=== PATIENT | female | born 1955 | race Hispanic/Latino ===

== ENCOUNTER 2017-04-22 16:09 | Inpatient (IN) | payer BC, SELFPAY ==
[~2017-04-22 16:09] MED LIST: ISOVUE-370 76%-LOCM 1 ML ONE
[2017-04-22 16:42] LABS: #Basophils 0.1 thou/uL (0.0-0.2); #Eosinphils 0.3 thou/uL (0.0-0.7); #Lymphocytes 5.5 thou/uL (1.20-3.40); #Monocytes 0.7 thou/uL (0.11-0.59); #Neutrophils 4.8 thou/uL (1.40-6.50); %Basophils 0.8 % (0.0-1.0); %Eosinophils 2.9 % (0.0-10.0); %Lymphocytes 48.5 % (21.0-51.0); %Monocytes 5.9 % (0.0-10.0); Hematocrit 45.3 % (36.0-47.0); Mean Platelet Volume 7.7 fL (7.4-10.4); Red Blood Cell (RBC) Count 5.14 mill/uL (4.20-5.40); White Blood Cell (WBC) Count 11.4 thou/uL (4.8-10.8)
[2017-04-22 16:48] LABS: PTT 29.5 SEC (22.9-36.1)
--- NOTE | 2017-04-22 16:50 | CT ---
CT BRAIN NONCONTRAST: DATE: 04/22/2017 TIME: 4:31 p.m. HISTORY: A 61-year-old female with acute stroke symptoms: acute right upper extremity weakness. Dr. Vazquez called this stroke alert protocol report STAT to Dr. Rodriguez of the Emergency Department at 4: 34 p.m. on 04/22/2017. FINDINGS: There is no midline shift or any other mass effect. There is no evidence of acute intracranial hemo rrhage, large cortical infarct, obstructive hydrocephalus, or extraaxial fluid collection. The calv arium is intact. IMPRESSION: No acute intracranial findings. shiva [] POS: [facility]
[2017-04-22 16:54] LABS: ALT (SGPT) 15 U/L (8-55); AST (SGOT) 18 U/L (5-34); Alkaline Phosphatase 105 U/L (40-150); Anion Gap 14 mmol/L (10-20); BUN (Urea Nitrogen) 10 mg/dL (9.8-20.1); Bilirubin, Total 0.3 mg/dL (0.2-1.2); CK (CPK) 127 U/L (29-168); Calc. Creatinine Clearance 0 mL/min (70-130); Carbon Dioxide 24 mmol/L (23-31); Chloride 104 mmol/L (98-107); Estimated GFR-MDRD 84; Globulin 3.6 g/dL (2.4-3.5); Lipase 22 U/L (8-78); Protein, Total 7.7 g/dL (6.0-8.3)
[2017-04-22 16:58] LABS: Troponin I Less than 0.010 ng/mL (< 0.028)
--- NOTE | 2017-04-22 17:21 | RAD ---
PORTABLE CHEST ONE VIEW 04/22/2017 at 4:10 p.m.: HISTORY: Altered mental status. FINDINGS/IMPRESSION: Comparison is made with the exam of 11/21/2004. The heart size is borderline. The lungs are expanded without focal areas of consolidation, pneumoth orax, maximiliano pleural edema, or pleural effusions. There are post-op changes of right rotator cuff repair. POS: [facility]
[2017-04-22 17:31] LABS: Prothrombin Time 12.9 SEC (12.0-14.7)
[2017-04-22 17:41] LABS: Bilirubin Negative (Negative); Blood, Urine Negative (Negative); Glucose, Urine (Dipstick) Negative (Negative); Ketone, Urine Negative (Negative); Nitrite Negative (Negative); Protein, Urine (Dipstick) Negative (Neg-Trace); Urobilinogen 0.2 mg/dL (0.2-1.0)
[2017-04-22 17:51] LABS: Amphetamine Not Detected (NotDetected); Methadone Not Detected (NotDetected); Methamphetamine Not Detected (NotDetected)
--- NOTE | 2017-04-22 17:55 | CT ---
CT ANGIOGRAM OF THE NECK WITH CONTRAST CT ANGIOGRAM OF THE HEAD WITH CONTRAST CT PERFUSION OF BRAIN WITH CONTRAST: 04/22/17 HISTORY: 61-year-old female with acute stroke: right lower extremity and right upper extremity acute weakness . This stroke alert protocol study report was called to Dr. Eric Rodriguez of the Emergency Department at 1700 hours on 04/22/17. TECHNIQUE: 150 mL of Isovue 370 injected IV. Arterial bolus chasing technique scan performed from the mediastinum approximately 1.5 cm inferior t o the marissa, to the vertex of the head. Sagittal and coronal 3D MIP reconstructions of the neck. Sagittal and coronal 3D MIP reconstructions of the head. Multiphase CTs of the brain performed, excluding the posterior fossa, and excluding the levels super ior to the lateral ventricles, for perfusion study. FINDINGS: There is no asymmetric abnormality of the cerebral blood volume, cerebral blood flow, mean transit t shira, or IRFI. No evidence of occlusion or high grade focal stenosis identified involving the anterior or posterior circulation [place] of Daniel, including proximal and mid level branches. Peripheral branches are mo re difficult to evaluate. There is an anterior communicating artery and a right posterior communicating artery. The left carot id siphon is diffusely mildly to moderately narrower than the contralateral right carotid siphon. Th is may be related to the fact that the left internal carotid artery is also diffusely mildly to mode rately narrower than the contralateral carotid siphon. There is no focal high grade stenosis of the internal carotid arteries, common carotid arteries, brachiocephalic artery, right subclavian artery, or the right vertebral artery. The bilateral vertebral arteries are codominant. The proximal portio n of the left vertebral artery is obscured by beam hardening artifact from adjacent dense contrast m aterial in the adjacent left vertebral veins. Likewise, the distal portion of the left subclavian ve in is obscured by beam hardening artifact from the adjacent contrast bolus in the left subclavian ve in. Aortic arch is within normal limits in caliber. No dissection. IMPRESSION: 1. No abnormality identified on the perfusion scan. 2. Please note that a perfusion abnormality in the upper portion of the cerebrum, including kat t involving the motor cortex and sensory cortex, would not be included on standard perfusion studies such as this. 3. No definite major abnormality of the major intracranial arteries or major arteries of the ne ck. Code CR POS: [facility]
[2017-04-22 19:45] VITALS: BMI 40.0
[2017-04-22] MEDS ORDERED: Acetaminophen 325 MG TAB PO PRN (19:48)
[2017-04-22] MEDS ORDERED: Ondansetron ODT 4 MG TAB SL PRN (19:48)
[2017-04-22] MEDS ORDERED: Ondansetron HCl/PF 4 MG/2 ML Vial IVP PRN ×2 (19:48→20:08)
[2017-04-22] MEDS ORDERED: Sodium Chloride 0.9% 1,000 ML IV SCH (19:48)
[2017-04-22] MEDS ORDERED: hydrALAZINE 20 MG/ML VIAL SLOW IVP PRN (20:08)
[2017-04-22] MEDS ORDERED: Ondansetron ODT 4 MG TAB PO PRN (20:08)
[2017-04-22] MEDS: Famotidine 20 MG TAB PO SCH (20:43)
[2017-04-22] MEDS: Acetaminophen 500 MG TAB PO PRN (20:43)
[2017-04-22] MEDS ORDERED: Atorvastatin Calcium 40 MG TAB PO SCH (21:00)
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
[2017-04-23] MEDS: Acetaminophen 500 MG TAB PO PRN ×2 (05:00→11:15)
[2017-04-23 05:27] LABS: Band 2 % (5-11); Hematocrit 42.9 % (36.0-47.0); Mean Platelet Volume 8.3 fL (7.4-10.4); Neutrophil 50 % (42-75); Red Blood Cell (RBC) Count 4.92 mill/uL (4.20-5.40); White Blood Cell (WBC) Count 8.3 thou/uL (4.8-10.8)
[2017-04-23 05:33] LABS: Anion Gap 12 mmol/L (10-20); BUN (Urea Nitrogen) 10 mg/dL (9.8-20.1); Calc. Creatinine Clearance 143 mL/min (70-130); Calcium 8.7 mg/dL (7.8-10.44); Carbon Dioxide 22 mmol/L (23-31); Chloride 108 mmol/L (98-107); Cholesterol 186 mg/dl (< 200 Desired); Estimated GFR-MDRD 88; LDL Cholesterol, Calculated 124 mg/dL
[2017-04-23] MEDS: Famotidine 20 MG TAB PO SCH (08:40)
[2017-04-23] MEDS ORDERED: Aspirin 325 mg Enteric Coated Tablet PO SCH (09:00)
[2017-04-23] MEDS ORDERED: FLU VACC QS2017-18 36 mo. & older 0.5 ML SYRINGE IM ONE (09:00)
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
[2017-04-23 11:51] VITALS: BP 119/70; TEMP 97.5
--- NOTE | 2017-04-23 12:44 | MRI ---
MRI BRAIN WITHOUT CONTRAST: Technique: Multiplanar, multisequential imaging of brain obtained. History: Right upper extremity weakness. Comparison: CT from yesterday showed no acute finding. FINDINGS: Ventricles show normal size and position. No evidence for restricted diffusion identified. There is no evidence of acute infarct. No mass or edema. No significant white matter abnormality. The visualized intracranial internal carotid arteries, proximal cerebral arteries, and basilar arter y are patent. IMPRESSION: No evidence of acute process. POS: [facility]
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
== END 2017-04-23 14:14 | disposition home or self-care (01) | DRG 551 ==
LOC: ERS 16:09 → 2SE 18:51
PROVIDERS: ADMIT Family Medicine; ATTEND Family Medicine
DX: S13.4XXA Sprain of ligaments of cervical spine, initial encounter (principal); G93.40 Encephalopathy, unspecified; Z68.41 Body mass index [BMI] 40.0-44.9, adult; S16.1XXA Strain of muscle, fascia and tendon at neck level, initial encounter; R51 Headache; V43.52XA Car driver injured in collision with other type car in traffic accident, initial encounter; M47.892 Other spondylosis, cervical region; E66.9 Obesity, unspecified; K21.9 Gastro-esophageal reflux disease without esophagitis; E78.5 Hyperlipidemia, unspecified
CPT/HCPCS: 0042T; 36415; 36416; 51702; 70450; 70496; 70551; 71010; 72040; 80048; 80053; 80061; 80306; 81003; 82550; 82553; 83690; 83880; 84146; 84484; 85007; 85025; 85027; 85610; 85730; 90471; 90682; 93005; 93306; 96360; 96361; G0008; Q2036